=== PATIENT | female | born 1995 ===

== ENCOUNTER 2016-10-09 01:20 | Emergency (ER) | payer SELFPAY ==
[2016-10-09 01:29] VITALS: O2SAT 97
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
[2016-10-09] MEDS ORDERED: TDAP ADULT 0.5 ML INJ (BOOSTRIX) IM ONE (04:04)
[2016-10-09] MEDS ORDERED: ONDANSETRON DISINTEGRATING 4 MG TAB PO ONE (04:04)
[2016-10-09] MEDS ORDERED: AZITHROMYCIN 250 MG TAB PO ONE (04:04)
[2016-10-09] MEDS ORDERED: cefTRIAXone 250 MG VIAL IM ONE (04:04)
[2016-10-09] MEDS ORDERED: HEPATITIS B VIRUS VACCINE-PF 20 MCG/ML VIAL IM ONE (04:04)
[2016-10-09] MEDS ORDERED: CEFTRIAXONE IM 350 MG/ML SYRINGE IM ONE (04:30)
[2016-10-09 08:38] VITALS: BP 103/59; PULSE 77; RESP 16; TEMP 98.6
== END 2016-10-09 06:15 | disposition home or self-care (01) ==
LOC: EEVIPCON 01:20
DX: Z04.41 Encounter for examination and observation following alleged adult rape (principal); J45.909 Unspecified asthma, uncomplicated; Z87.891 Personal history of nicotine dependence; Z91.040 Latex allergy status
CPT/HCPCS: J0696

== ENCOUNTER 2017-02-25 22:32 | Emergency (ER) | payer MEDICAID, OTHER ==
[2017-02-25 22:47] VITALS: BP 146/79; PULSE 94; RESP 16; TEMP 98.1; O2SAT 95
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
[2017-02-26] MEDS ORDERED: ONDANSETRON DISINTEGRATING 4 MG TAB PO ONE (00:27)
[2017-02-26] MEDS ORDERED: ULIPRISTAL ACETATE 30 MG TAB PO ONE (00:27)
[2017-02-26] MEDS ORDERED: AZITHROMYCIN 250 MG TAB PO ONE (00:27)
== END 2017-02-26 02:53 | disposition home or self-care (01) ==
LOC: EEVIPCON 22:32
DX: T74.21XA Adult sexual abuse, confirmed, initial encounter (principal); J45.909 Unspecified asthma, uncomplicated; Z87.891 Personal history of nicotine dependence; Z91.040 Latex allergy status
CPT/HCPCS: J0696

== ENCOUNTER 2017-04-18 22:31 | Emergency (ER) | payer MEDICAID ==
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
[2017-04-18] MEDS ORDERED: EMTRICITABINE/TENOFOVIR 200MG/300MG TAB PO ONE (23:55)
[2017-04-18] MEDS ORDERED: RALTEGRAVIR 400 MG TAB PO ONE (23:55)
[2017-04-19] MEDS ORDERED: EMTRICITABINE/TENOFOVIR 200MG/300MG TAB PO SCH
[2017-04-19] MEDS ORDERED: RALTEGRAVIR 400 MG TAB PO SCH
[2017-04-19 02:19] VITALS: BP 121/77; PULSE 74; RESP 16; TEMP 97.9; O2SAT 96
[2017-04-19 02:23] LABS: HEPATITIS B SURFACE ANTIGEN NEGATIVE (NEGATIVE)
[2017-04-19 02:40] LABS: HEPATITIS C ANTIBODY TOTAL NEGATIVE (NEGATIVE)
[2017-04-19 03:39] LABS: HIV TYPE 1 AND 2 NEGATIVE (NEGATIVE)
[2017-04-19 11:59] LABS: GC AMPLIFICATION GENPROBE NEGATIVE (NEGATIVE)
== END 2017-04-19 02:20 | disposition home or self-care (01) ==
DX: Z20.6 Contact with and (suspected) exposure to human immunodeficiency virus [HIV] (principal); F10.129 Alcohol abuse with intoxication, unspecified; J45.909 Unspecified asthma, uncomplicated; Z87.891 Personal history of nicotine dependence; Z91.040 Latex allergy status
CPT/HCPCS: G0472